=== PATIENT | male | born 1995 | race Caucasian/White ===

== ENCOUNTER 2019-02-23 13:44 | Inpatient (IN) | payer OTHER ==
[2019-02-23] MEDS ORDERED: Ketorolac INJ* 30 MG/ML 1 ML VIAL IV PUSH ONE (14:25)
[2019-02-23] MEDS ORDERED: Clindamycin 900 MG IVPREMIX(* 900 MG/50 ML SDV IV ONE (14:25)
--- NOTE | 2019-02-23 14:26 | ED ---
Psychiatric Complaint - HPI Summary HPI Summary: This pt is a 23 y/o male presenting to [facility] c/o SI for the past several weeks. Pt reports he has been thinking about jumping off a gorge "for a while now." He states he still has those SI thoughts. Additionally pt notes he has had pain in his left upper tooth since 5 days ago. Pt reports he is unable to open his jaw. Denies fever or chills. Pt denies erythema of eyes, sore throat, chest pain, SOB , cough, abd pain, nausea, vomiting, dysuria, hematuria, myalgia, edema, rash, or dizziness. PMHx: asthma for which he uses albuterol. Pt is from [place]. Pt took an Uber to the ED. - History Of Current Complaint Chief Complaint: EDMentalHealth Time Seen by Provider: 02/23/19 13:57 Hx Obtained From: Patient Onset/Duration: Lasting Weeks, Still Present Timing: Weeks Severity Currently: Moderate Character: Depressed Aggravating Factor(s): Nothing Alleviating Factor(s): Nothing Has Suicidal: Reports: Thoughts, With A Plan Has Homicidal: Denies: Thoughts, With A Plan - Allergies/Home Medications Allergies/Adverse Reactions: Allergies Allergy/AdvReac Type Severity Reaction Status Date / Time Penicillins Allergy Unknown Verified 02/23/19 13:54 Reaction Details PMH/Surg Hx/FS Hx/Imm Hx Endocrine/Hematology History: Denies: Hx Diabetes Cardiovascular History: Denies: Hx Hypertension Respiratory History: Reports: Hx Asthma Infectious Disease History: No Infectious Disease History: Denies: Traveled Outside the [place] in Last 30 Days - Family History Known Family History: Positive: Non-Contributory - Social History Alcohol Use: Occasionally Substance Use Type: Reports: None Smoking Status (MU): Never Smoked Tobacco Review of Systems Negative: Fever, Chills Negative: Erythema Positive: Dental Pain. Negative: Sore Throat Negative: Chest Pain Negative: Shortness Of Breath, Cough Negative: Abdominal Pain, Vomiting, Nausea Negative: dysuria, hematuria Negative: Myalgia, Edema Negative: Rash Neurological: Other - NEGATIVE: dizziness Psychological: Other - POSITIVE: SI All Other Systems Reviewed And Are Negative: Yes Physical Exam - Summary Physical Exam Summary: Constitutional: Well-developed, Well-nourished, Alert. (-) Distressed Skin: Warm, Dry HENT: Normocephalic; Atraumatic. Trismus is present. No drainable abscess in the left mandible. Eyes: Conjunctiva normal Neck: Musculoskeletal ROM normal neck. (-) JVD, (-) Stridor, (-) Tracheal deviation Cardio: Rhythm regular, rate normal, Heart sounds normal; Intact distal pulses; The pedal pulses are 2+ and symmetric. Radial pulses are 2+ and symmetric. (-) Murmur Pulmonary/Chest wall: Effort normal. (-) Respiratory distress, (-) Wheezes, (-) Rales Abd: Soft, (-) Tenderness, (-) Distension, (-) Guarding, (-) Rebound Musculoskeletal: (-) Edema Lymph: (-) Cervical adenopathy Neuro: Alert, Oriented x3 Psych: Mood and affect Normal Triage Information Reviewed: Yes Vital Signs On Initial Exam: Initial Vitals Temp Pulse Resp BP Pulse Ox 98.4 F 70 16 115/71 97 02/23/19 13:49 02/23/19 13:49 02/23/19 13:49 02/23/19 13:49 02/23/19 13:49 Vital Signs Reviewed: Yes Procedures - Sedation Patient Received Moderate/Deep Sedation with Procedure: No Diagnostics - Vital Signs Vital Signs Temp Pulse Resp BP Pulse Ox 02/23/19 13:49 98.4 F 70 16 115/71 97 - Laboratory Result Diagrams: 02/23/19 14:39 02/23/19 14:39 Lab Statement: Any lab studies that have been ordered have been reviewed, and results considered in the medical decision making process. - CT Neck CT CT Interpretation Completed By: Radiologist Summary of CT Findings: IMPRESSION: Unremarkable CT of the neck. There is no loculated fluid collection to suggest abscess. There is no lymphadenopathy by size criteria. Dr. Ortiz has reviewed this report. Course/Dx - Course Assessment/Plan: Pt is a 23 y/o male presenting to [facility] c/o SI for the past several weeks. Pt reports he has been thinking about jumping off a gorge "for a while now." He states he still has those SI thoughts. Additionally pt notes he has had pain in his left upper tooth since 5 days ago. Pt reports he is unable to open his jaw. Denies fever or chills. Lab work is unremarkable. Neck CT shows unremarkable CT of the neck. There is no loculated fluid collection to suggest abscess. There is no lymphadenopathy by size criteria. Patient is medically cleared. He is waiting for a mental health evaluation. Pt will be signed out to Dr. Abreu pending a MHE and disposition. - Differential Dx/Clinical Impression Provider Diagnosis: Pain, dental, Suicidal ideation Discharge ED - Sign-Out/Discharge Documenting (check all that apply): Sign-Out Patient Signing out patient TO: Missy Abreu - pending MHE and disposition - Discharge Plan Condition: Stable Prescriptions: Clindamycin HCl 300 mg PO QID #21 capsule Naproxen TAB* [Naprosyn 250 mg TAB*] 500 mg PO Q8H PRN #21 tab PRN Reason: Pain - Severe Referrals: [facility], [Primary Care Provider] - - Billing Disposition and Condition Condition: STABLE - Attestation Statements Document Initiated by Scribe: Yes Documenting Scribe: Kaela Liao Provider For Whom Scribe is Documenting (Include Credential): Toney Ortiz MD Scribe Attestation: Kaela Briggs scribed for Toney Ortiz MD on 02/23/19 at 1858. Scribe Documentation Reviewed: Yes Provider Attestation: The documentation as recorded by the Kaela faye accurately reflects the service I personally performed and the decisions made by , Toney Ortiz MD Status of Scribe Document: Viewed
[2019-02-23 14:49] LABS: ABS Eosinophils 0.1 10^3/ul (0-0.6); ABS Lymphocytes 1.3 10^3/ul (1.0-4.8); ABS Monocytes 0.3 10^3/ul (0-0.8); ABS Neutrophils 4.3 10^3/ul (1.5-7.7); Hematocrit 41 % (42-52); Hemoglobin 13.8 g/dL (14.0-18.0); Lymphocyte % 21.7 %; Mean Corpuscular HGB Conc 34 g/dL (31-36); Mean Corpuscular Hemoglobin 31 pg (27-31); Mean Corpuscular Volume 91 fL (80-94); Mean Platelet Volume 8.9 fL (7.4-10.4); Nucleated Red Blood Cells % 0.1; Platelet Count 222 10^3/uL (150-450); Red Blood Count 4.52 10^6 /uL (4.18-5.48); Red Cell Distribution Width 13 % (10-15)
[2019-02-23 15:09] LABS: Albumin 4.1 g/dL (3.2-5.2); Anion Gap 3 mmol/L (2-11); CO2 Carbon Dioxide 29 mmol/L (22-32); Calcium 9.1 mg/dL (8.6-10.3); Chloride 106 mmol/L (101-111); Potassium 4.5 mmol/L (3.5-5.0); Sodium 138 mmol/L (135-145)
[2019-02-23 15:14] LABS: Acetaminophen < 15 mcg/mL; Alcohol < 10 mg/dL (<10); Salicylate < 2.50 mg/dL (<30)
[2019-02-23 15:15] LABS: ALT 13 U/L (7-52); AST 17 U/L (13-39); Albumin/Globulin Ratio 1.4 (1-3); Alkaline Phosphatase 54 U/L (34-104); BUN/Creatinine Ratio 13.3 (8-20); Blood Urea Nitrogen 12 mg/dL (6-24); EGFR African American 126.5 (>60); EGFR Non-African American 104.6 (>60); Glucose 97 mg/dL (70-100); Total Protein 7.1 g/dL (6.4-8.9)
[2019-02-23 15:19] LABS: Urine Appearance Cloudy; Urine Bilirubin Negative (Negative); Urine Blood Negative (Negative); Urine Color Yellow; Urine Glucose Negative (Negative); Urine Ketones Negative (Negative); Urine Nitrite Negative (Negative); Urine Protein Negative (Negative); Urine Specific Gravity 1.009 (1.010-1.030); Urine Urobilinogen Negative (Negative)
[2019-02-23] MEDS ORDERED: Iohexol 300* (CONTRAST) 10 ML SDV IV ONE (15:33)
[2019-02-23 15:43] LABS: Urine Benzodiazepine Screen None Detected (None Detect); Urine Opiates Screen None Detected (None Detect)
[2019-02-23 15:46] LABS: TSH (Thyroid Stimulating Horm) 0.65 mcIU/mL (0.34-5.60)
--- NOTE | 2019-02-23 19:20 | ED ---
Progress - Progress Note Progress Note: The patient was signed out from Dr. Ortiz upon shift change on 02/23/19 at 19: 00, awaiting MHE and pending disposition. Course/Dx - Course Course Of Treatment: The patient was signed out from Dr. Ortiz upon shift change on 02/23/19 at 19:00, awaiting MHE and pending disposition. Mental health environmental journalist reviewed case with Dr. Huston, psychiatry, and they recommend admission. The patient will be admitted. - Diagnoses Provider Diagnoses: Depression - Provider Notifications Discussed Care Of Patient With: Srinivasa Huston Time Discussed With Above Provider: 21:30 Instructed by Provider To: Other - Dr. Huston, psychiatry, recommends admission Discharge ED - Sign-Out/Discharge Documenting (check all that apply): Patient Departure - Admit - Discharge Plan Condition: Stable Disposition: [facility]IATRIC FACILITY-[facility] [place] - Billing Disposition and Condition Condition: STABLE Disposition: Psychiatric Facility [facility] - Attestation Statements Document Initiated by Scribe: Yes Documenting Scribe: Mable Mason Provider For Whom Luzmariaibe is Documenting (Include Credential): Missy Abreu MD Scribe Attestation: IMable, scribed for Missy Abreu MD on 02/24/19 at 0342. Scribe Documentation Reviewed: Yes Provider Attestation: The documentation as recorded by the Mable faye accurately reflects the service I personally performed and the decisions made by me, Missy Abreu MD Status of Scribe Document: Viewed Procedures - Sedation Patient Received Moderate/Deep Sedation with Procedure: No
[2019-02-23] MEDS ORDERED: hydrOXYzine HCL TAB* 50 MG PO PRN (21:20)
[2019-02-23] MEDS ORDERED: Al Hydrox/Mg Hydrox/Simet LIQ* 30 ML UDC PO PRN (23:05)
[2019-02-23] MEDS ORDERED: Acetaminophen TAB* 325 MG PO PRN (23:05)
[2019-02-24] MEDS ORDERED: Vitamin THERAPEUTIC TAB PO SCH (09:00)
[2019-02-24 09:19] VITALS: BP 100/51
[2019-02-24] MEDS ORDERED: Ibuprofen TAB* 600 MG PO PRN (10:22)
[2019-02-24] MEDS ORDERED: Clindamycin CAP* 150 MG PO SCH (17:00)
--- NOTE | 2019-02-24 18:21 | HP ---
HISTORY AND PHYSICAL: DATE OF ADMISSION: 02/23/19 PROVIDER: Nel Zurita NP, in Psychiatry. SUPERVISING PHYSICIAN: Srinivasa Huston MD * (DICTATED BY NEL ZURITA NP ) JUSTIFICATION FOR ADMISSION: The patient is in need of 24-hour supervision and care secondary to suicidal ideation with plan to jump off the gorge. CHIEF COMPLAINT: "I get oversaturated." HISTORY OF PRESENT ILLNESS: The patient is a 23-year-old single [place]i- [place] male with a history of "being abrasive" and suicidal ideation since the age of 13, who arrives brought in by cab and is here on a voluntary status after having tooth pain that has driven him to be too emotionally desperate and feeling hopeless so that he wants to end his life. 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 He states he was in a good place last week until he started experiencing tooth pain and realized that the anniversary of his father's was about a week and a half away. He states that he has an episode like this that happens once every year around this time. He states the tooth infection is causing frustration along with a keloid growth on his left ear. A dissatisfaction with the healthcare system, inability to get therapy, and generally feeling bad about himself. He notes that he has 5 stressors: 1. School/career. 2. Grief for his father. 3. Body image including his ear and his tooth pain as well as an eating disorder. 4. Sexual orientation "I don't fit into heteronormative categories." 5. Spiritual and thiago-related issues. He identifies as a Anabaptism. He is depressed with feelings of decreased interest, some guilt, less energy and inability to concentrate, agitation and suicidal ideation. PAST PSYCHIATRIC HISTORY: He has never been admitted to a psychiatric hospital before. He has never received treatment before he is being treated at [facility], but he saw a therapist once and the next 2 appointments were cancelled. He states he chronically has suicidal ideation, but "I don't have the guts" to actually do anything like jump off a john. He has taken Saphris in the past, but it made him pass out due to his blood pressure being lowered. He cannot exactly say what made the psychiatrist he saw do Saphris, but he says there was some sort of schizophrenic or bipolar theory going on. He objects to the word diagnosis. He also questions whether he has attention deficit hyperactivity disorder. He states he has trouble concentrating and reading is difficult. He also wonders if he has dyslexia as he has to reread a paragraph multiple times in a row. PAST MEDICAL HISTORY: He is very concerned about his tooth, which was addressed in the emergency department and is now being treated with clindamycin 300 mg 4 times a day and naproxen 500 twice a day. ALLERGIES: He is allergic to PENICILLIN. FAMILY HISTORY: There is generational trauma due to his family in the past having been incarcerated during World War II. He does not note mental health issues, but his father had kidney damage and a brain hemorrhage was the cause of his . SUBSTANCE ABUSE: Denied. SOCIAL HISTORY: He is from [place]. He has siblings that he cares about very much. He states there was no abuse, but there may have been some domestic stress including a lot of yelling and shouting as well as some odd behaviors like kicking out his brother at his age 15 and police coming to the house. He is not or partnered. He lives with 5 roommates. He does not have children. He is not employed. He has not been in the . He denies that he has any legal problems. He states that people who do not have a clear orientation about their sex get very frustrated. REVIEW OF SYSTEMS: The patient reports feeling fatigued. He denies shortness of breath, heat or cold intolerance, chest pain or abdominal pain. He denies neurological symptoms. He denies fevers or changes in weight. PHYSICAL EXAMINATION CONSTITUTIONAL: Well-developed, well-nourished, alert. VITAL SIGNS: On 02/24/19 at 0918, temperature is 97.7, pulse 51, respirations 16, O2 sat on room air 100%, blood pressure 100/51. HEENT: Normocephalic, atraumatic. Trismus is present. No drainable abscess in the left mandible. Conjunctivae normal. NECK: No JVD. No stridor. No tracheal deviation. PULMONARY: Chest wall effort normal. No respiratory distress. No wheezes. No rales. CARDIO: Rhythm regular. Rate normal. Heart sounds normal. Intact distal pulses. The pedal pulses are 2+ and symmetric. Radial pulses are 2+ and symmetric. No murmur. ABDOMEN: Soft. No tenderness. No distention. No guarding. No rebound. MUSCULOSKELETAL: ROM normal. No edema. LYMPHS: No cervical adenopathy. NEURO: Alert and oriented x4. SKIN: Warm and dry. DIAGNOSTIC STUDIES/LAB DATA: Laboratory data most are within normal limits. Hemoglobin is low at 13.8, hematocrit is low at 41. Chemistry panel is normal. Urine specific gravity is low at 1.009. Toxicology screen reveals no drugs of abuse. MENTAL STATUS EXAMINATION: This is a 5-foot 7-inch, 170-pound Azeri- [place] male with short black hair. He is somewhat agitated. He is irritable , but he is cooperative. He is dysthymic. His affect is constricted and anxious. His thought processes appear to be normal. He has no delusions. He is passively suicidal. He is not homicidal. He is not having hallucinations. His insight is fair. His judgment is good. He is alert and oriented x4. DIAGNOSIS: Major depressive disorder. IMPRESSION: Malik is a 23-year-old man who comes to the hospital for tooth pain , but is referred for a mental health evaluation and an eventual admission following his own admission that he is having suicidal thoughts in the wake of the pain that he is in and in the shadow of the of his father 2 years ago at this time of year. PLAN: The patient is admitted to the adult behavioral health unit and placed on q.15 minute checks for his own safety. He is encouraged to participate in supportive milieu, individual and group therapies. Estimated length of stay is 3 to 5 days. We will titrate medications to efficacy including starting Lexapro 5 mg and monitor for mood and thought content. We will also be using clindamycin 300 mg 4 times a day and naproxen 500 mg b.i.d. Discharge planning will include family involvement and outpatient providers. NEL ZURITA, SERA [id number]/[facility] #: [id number] TRIXIE
[2019-02-24] MEDS ORDERED: Naproxen TAB* 250 MG PO SCH (21:00)
[2019-02-24] MEDS ORDERED: Escitalopram * 5 MG TAB PO SCH (21:00)
--- NOTE | 2019-02-28 13:23 | DS ---
CC: CAPS, attention Lesia Madison * DISCHARGE SUMMARY: DATE OF ADMISSION: 02/23/19 DATE OF DISCHARGE: 02/24/19 PROVIDER: Nel Donahue NP in Psychiatry. SUPERVISING PHYSICIAN: Momo Martinez MD * (DICTATED BY NEL DONAHUE NP) DIAGNOSIS: Depressive disorder. CONDITION AT THE TIME OF DISCHARGE: Improved, psychiatrically cleared, stable. Participated in at least some groups and with social with select peers. He is agreeable to discharge. He did well here psychiatrically. He agreed to try medications including Lexapro. He will be attending [facility]. MENTAL STATUS EXAM: At the time of discharge, Malik is anxious, but generally calm and cooperative. He makes good eye contact. He is alert and oriented x4. His grooming is good. His speech pace is rapid. Thought process is logical. He is not psychotic or delusional. He denies AH, VH, SI, and HI. His insight is fair. His judgment is good. He is willing to follow up and he is urged to see a therapist on a regular basis. DISCHARGE INSTRUCTIONS TO THE PATIENT: A. Medications: 1. Clindamycin 300 mg by mouth 4 times a day until 03/01/19, this is in regard to acute tooth infection. 2. Lexapro 5 mg at bedtime. 3. Naproxen 500 mg by mouth twice a day. B. Diet is regular. C. Activities as tolerated. Malik is a nonsmoker. There are no studies pending at the time of discharge. D. Followup Care: Malik has an appointment at [facility] on Wednesday, 02/28 at 10:30 with Lesia Madison on Level 3. Lesia is an urgent care counselor, you and she will engage in forward planning to ensure your future care is appropriate. E. Disposition: Malik is being discharged home to his apartment. F. Substance abuse followup is not indicated. HOSPITAL COURSE: Part A: Chief Complaint: "I get oversaturated." The patient is a 23-year-old [place] male with a history of "being abrasive" and suicidal ideation since the age of 13, who arrives brought in by cab and is here on a voluntary status after having tooth pain that has driven him to be too emotionally desperate and feeling hopeless so that he wants to end his life. 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 He states he was in a good place last week until he started experiencing tooth pain and realized that the anniversary of his father's was about a week- and-a-half away. He states that he has an episode like this once every year around this time. He states that the tooth infection is causing frustration along with a keloid growth on his left ear. A dissatisfaction with the healthcare system, inability to get therapy, and generally feeling bad about himself. He notes that he has 5 stressors: 1. School/career. 2. Grief for his father, who passed 2 years ago. 3. Body image including his ear and his tooth pain as well as an eating disorder. 4. Sexual orientation: "I don't fit into heteronormative categories." 5. Spiritual and thiago-related issues. He identifies as a Spiritism. He is depressed with feelings of decreased interested, some guilt, less energy, and inability to concentrate, agitation, and suicidal ideation. Part B: Psychiatric treatment was rendered. Malik was admitted to the adult behavioral unit and placed on 15 minute checks for safety. Malik did not enjoy being on the unit and went to only 1 or 2 groups. He tended to interact with only select peers. He had personality conflicts with some members of staff and took umbrage with some of the procedural aspects of the unit such as having his skin checked, which he felt made him more of a number rather than a person. He did agree as he has been depressed for years that an antidepressant and antianxiety could be helpful to him. He was agreeable to starting Lexapro 5 on an outpatient basis as he wanted to be discharged as soon as possible. After attending a group, Malik came to me and stated "this is not an intensive therapeutic program is it." After acknowledging that it is not such a program, he indicated his intense desired to be discharged and to go where he could get such treatment. I did indicate to him that there is no such program in [place], [place] and in fact many people suggests seeing any therapist once a week is suitable and helpful. He has had a difficult time getting in to see his therapist at [employer] and this also causes him some frustration and perhaps anger. Nevertheless, Malik was agreeable to being discharged. He had felt from the beginning that this may not be the appropriate place for him as he did not seem to understand that this was an acute care setting rather than some place that would take care off the 5 stressors that he referred to multiple times. He is improved. He is no longer suicidal. He recognizes that the timing of this toothache, which had him in pain at 6 or 7/10, which was reduced to a 4/10 or less was likely the tipping factor in his thoughts of suicide. He states that he is now able to manage himself outpatient. He has many appointments that he wants to attend including to see to his tooth. He is forward looking. He is future oriented. He is eager to be out of the hospital and back at school. NEL DONAHUE, SERA [id number]/[facility] #: [id number] TRIXIE
== END 2019-02-24 19:15 | disposition home or self-care (01) | DRG 881 ==
LOC: ED 13:44 → BSU 21:49 → ED 22:10
PROVIDERS: ADMIT Psychiatry & Neurology Psychiatry; ATTEND Psychiatry & Neurology Psychiatry
DX: F32.9 Major depressive disorder, single episode, unspecified (principal); R45.851 Suicidal ideations; J45.909 Unspecified asthma, uncomplicated; K04.7 Periapical abscess without sinus; Z88.0 Allergy status to penicillin; Z72.89 Other problems related to lifestyle
CPT/HCPCS: 36415; 70491; 80053; 80307; 80320; 80329; 81003; 84443; 85025; 96365; 96375; 99238; 99284; A9270-GY; G0480; J1885; Q9967